=== PATIENT | male | born 1980 | race Caucasian/White ===

== ENCOUNTER 2022-04-09 22:50 | Emergency (ER) | payer SELFPAY ==
[2022-04-10] MEDS ORDERED: LORAZEPAM 1 MG TABLET ONE (00:06)
--- NOTE | 2022-04-10 01:13 | ER ---
Nurse's Notes [facility] Name: Jason Middleton Age: 41 yrs Sex: Male : 1980 Arrival Date: 04/09/2022 Time: 22:53 Bed 16 Private MD: Diagnosis: Generalized anxiety disorder;Chest pain, unspecified Presentation: 04/09 23:06 Chief complaint: Chief complaint: Patient states: "I just feel out of, I am scared like tw5 something is going to happen to me.". 23:08 Coronavirus screen: Vaccine status: Patient reports receiving the 1st dose of the Covid tw5 vaccine. unknown. Ebola Screen: Patient negative for fever greater than or equal to 101.5 degrees Fahrenheit, and additional compatible Ebola Virus Disease symptoms Patient denies exposure to infectious person. Patient denies travel to an Ebola-affected area in the 21 days before illness onset. Initial Sepsis Screen: Does the patient meet any 2 criteria? No. Patient's initial sepsis screen is negative. Does the patient have a suspected source of infection? No. Patient's initial sepsis screen is negative. Risk Assessment: Do you want to hurt yourself or someone else? Patient reports no desire to harm self or others. Onset of symptoms is unknown. 23:08 Method Of Arrival: Ambulatory tw5 23:08 Acuity: KATHY 4 tw5 Triage Assessment: 23:10 General: Appears slender, Behavior is anxious. Pain: Denies pain. tw5 Historical: - Allergies: 23:10 No Known Allergies; tw5 - Home Meds: 23:10 None [Active]; tw5 - PMHx: 23:10 None; tw5 - PSHx: 23:10 "ulcer surgery"; tw5 - Immunization history:: Flu vaccine is not up to date. - Social history:: Smoking status: Patient denies any tobacco usage or history of. Screenin:25 Abuse screen: Denies threats or abuse. Denies injuries from another. Nutritional kb3 screening: No deficits noted. Tuberculosis screening: No symptoms or risk factors identified. Fall Risk None identified. Assessment: 23:25 Reassessment: No changes from previously documented assessment. kb3 23:25 Pain: Denies pain. Neuro: No deficits noted. Level of Consciousness is awake, alert, kb3 Oriented to person, place, time, situation, Gait is steady, Speech is normal, Denies weakness headache. Cardiovascular: No deficits noted. Denies chest pain. Respiratory: Denies cough, shortness of breath. GI: Patient currently denies abdominal pain, nausea, vomiting. : Denies burning with urination, pain. 23:25 General: Pt states he is not homicidal or suicidal. Reports feeling "off" and "just not kb3 right.' States he has felt this way before a few times but has not been diagnosed with any mental illness and has never been prescribed medications for the symptoms. Pt is calm and cooperative. Discussed plan of care including awaiting MD for further orders. Pt is agreeable. 23:30 General: Pt reports drinking daily, usually wine. Reports he has had several glasses of kb3 wine today but no more or less than his normal.. 23:44 General: Pt refusing all labs, tests, procedures. Reports that he would prefer the kb3 doctor to just give him a pill to help him feel better. MD notified. 04/10 01:13 General: Pt called from room reporting that the feeling of being anxious "like kb3 something is wrong" is returning. This RN again offered to draw blood and send to lab for evaluation. Pt refused and requested valium to help him relax. MD notified of pt request.. 04:18 Reassessment: Patient and/or family updated on plan of care and expected duration. Pain sm5 level reassessed. Patient is alert, oriented x 3, equal unlabored respirations, skin warm/dry/pink. Psych: 04:18 [place] Suicide Severity Screening: In the past month, have you wished you were sm5 or wished you could go to sleep and not wake up? Patient responds "No." "In the past month, have you actually had any thoughts of killing yourself?" Patient responds "no." "In your lifetime, have you ever done anything, started to do anything, or prepared to do anything to end your life?" Patient responds "no.". Subjective: Delusions are denied, Hallucinations are denied. Objective: Patient is cooperative, Speech is normal. Vital Signs: 04/09 23:08 BP 163 / 89; Pulse 88; Resp 18; Temp 98.1; Pulse Ox 100% ; Weight 58.97 kg; Height 5 tw5 ft. 8 in. (172.72 cm); Pain 0/10; 04/10 00:00 BP 158 / 78; Pulse 90; Resp 16; Pulse Ox 99% ; Pain 0/10; kb3 04:18 BP 145 / 86; Pulse 89; Resp 18; Pulse Ox 99% on R/A; sm5 04/09 23:08 Body Mass Index 19.77 (58.97 kg, 172.72 cm) tw5 ED Course: 04/09 22:53 Patient arrived in ED. ja2 23:01 Jared Ferguson DO is Attending Physician. ms3 23:06 Tika Matamoros, RN is Primary Nurse. kb3 23:10 Triage completed. tw5 23:10 Arm band placed on Patient placed in an exam room. tw5 23:25 Patient has correct armband on for positive identification. Bed in low position. Call kb3 light in reach. 23:25 No provider procedures requiring assistance completed. kb3 04/10 01:12 Anam Link MD is Referral Physician. ms3 01:44 XRAY Chest (1 view) In Process Unspecified. EDMS 01:51 Inserted saline lock: 20 gauge in left forearm, using aseptic technique. Blood sm5 collected. 03:42 Osiel Lopez DO is Referral Physician. ms3 Administered Medications: 04/09 23:53 CANCELLED (Physician Discretion): Ativan (LORazepam) 0.5 mg IVP once ms3 23:58 Drug: Ativan (LORazepam) 1 mg Route: PO; kb3 Medication: 23:25 VIS not applicable for this client. kb3 Outcome: 04/10 01:12 Discharge ordered by . ms3 03:44 Discharge ordered by MD. ms3 04:49 Patient left the ED. sm5 Signatures: Dispatcher [employer] EDMS Jared Ferguson DO DO ms3 Ramya Joya ja2 Tess Vinson tw5 Maritza Sanderson RN RN sm5 Tika Matamoros, GUILHERME RN kb3 Corrections: (The following items were deleted from the chart) 04/09 23:10 23:06 Chief complaint: tw5 tw5
--- NOTE | 2022-04-10 01:13 | EDPHYS ---
Physician Documentation [facility] Name: Jason Middleton Age: 41 yrs Sex: Male : 1980 Arrival Date: 04/09/2022 Time: 22:53 Bed 16 Private MD: ED Physician Jared Ferguson HPI: 04/10 01:12 This 41 yrs old Male presents to ER via Ambulatory with complaints of Psych Problem. ms3 01:12 The patient presents to the emergency department with anxiety. Onset: The ms3 symptoms/episode began/occurred 8 hour(s) ago. Associated signs and symptoms: Pertinent positives; anxiety. Severity of symptoms: At their worst the symptoms were moderate. 41-year-old male with no past medical history presents for being "scared and nervous and feels like something is going to happen." Denies pain. Patient denies chest pain, nausea, vomiting, diarrhea.. Historical: - Allergies: 04/09 23:10 No Known Allergies; tw5 - Home Meds: 23:10 None [Active]; tw5 - PMHx: 23:10 None; tw5 - PSHx: 23:10 "ulcer surgery"; tw5 - Immunization history:: Flu vaccine is not up to date. - Social history:: Smoking status: Patient denies any tobacco usage or history of. ROS: 04/10 01:29 Constitutional: Negative for fever, and chills. Eyes: Negative for injury, pain, ms3 redness, and discharge, Neck: Negative for injury, pain, and swelling, Cardiovascular: Negative for chest pain, and palpitations. Abdomen/GI: Negative for abdominal pain, nausea, vomiting, diarrhea, and constipation, MS/Extremity: Negative for injury and deformity, Skin: Negative for injury, rash, and discoloration, Psych: Negative for depression, anxiety, suicide ideation, homicidal ideation, and hallucinations. Respiratory: Positive for shortness of breath. All other systems are negative. Exam: 01:29 Constitutional: This is a well developed, well nourished patient who is awake, alert, ms3 and in no acute distress. Head/Face: Normocephalic, atraumatic. Neck: Trachea midline, no cervical lymphadenopathy. Supple, full range of motion without nuchal rigidity, or vertebral point tenderness. No Meningismus. Chest/axilla: Normal chest wall appearance and motion. Nontender with no deformity. Cardiovascular: Regular rate and rhythm with a normal S1 and S2. No gallops, murmurs, or rubs. Normal PMI, no JVD. No pulse deficits. Respiratory: Lungs have equal breath sounds bilaterally, clear to auscultation and percussion. No rales, rhonchi or wheezes noted. No increased work of breathing, no retractions or nasal flaring. Abdomen/GI: Soft, non-tender, with normal bowel sounds. No distension or tympany. No guarding or rebound. No evidence of tenderness throughout. Skin: Warm, dry with normal turgor. Normal color with no rashes, no lesions, and no evidence of cellulitis. MS/ Extremity: Pulses equal, no cyanosis. Neurovascular intact. Full, normal range of motion. Psych: Awake, alert, with orientation to person, place and time. Behavior, mood, and affect are within normal limits. 01:48 ECG was reviewed by the Attending Physician. ms3 Vital Signs: 04/09 23:08 BP 163 / 89; Pulse 88; Resp 18; Temp 98.1; Pulse Ox 100% ; Weight 58.97 kg; Height 5 tw5 ft. 8 in. (172.72 cm); Pain 0/10; 04/10 00:00 BP 158 / 78; Pulse 90; Resp 16; Pulse Ox 99% ; Pain 0/10; kb3 04:18 BP 145 / 86; Pulse 89; Resp 18; Pulse Ox 99% on R/A; sm5 04/09 23:08 Body Mass Index 19.77 (58.97 kg, 172.72 cm) tw5 MDM: 04/09 23:17 Patient medically screened. ms3 23:44 ED course: Patient refusing labs or IV. Will give 1 mg PO ativan as patient will accept ms3 oral medications. 04/10 01:29 Differential diagnosis: drug withdrawal. anxiety vs mi. ms3 03:44 Data reviewed: vital signs, nurses notes, lab test result(s), EKG, radiologic studies, ms3 and as a result, I will discharge patient. Counseling: I had a detailed discussion with the patient and/or guardian regarding: the historical points, exam findings, and any diagnostic results supporting the discharge/admit diagnosis, lab results, radiology results, the need for outpatient follow up, to return to the emergency department if symptoms worsen or persist or if there are any questions or concerns that arise at home. Special discussion: Based on the patient's history, exam, and Dx evaluation, there is no indication for emergent intervention or inpatient Tx. It is understood by the patient/guardian that if the Sx's persist or worsen they need to return immediately for re-evaluation. 04/09 23:26 Order name: CBC with Diff; Complete Time: 02:19 3 04/09 23:26 Order name: BMP; Complete Time: 02:19 3 04/10 01:28 Order name: Troponin HS; Complete Time: 02:19 3 04/10 01:28 Order name: XRAY Chest (1 view) 3 04/10 01:28 Order name: EKG; Complete Time: 01:30 04/10 01:28 Order name: Cardiac monitoring; Complete Time: :51 04/10 01:28 Order name: EKG - Nurse/Tech; Complete Time: 04/10 01:28 Order name: IV Saline Lock; Complete Time: :51 3 04/10 01:28 Order name: Labs collected and sent; Complete Time: :51 04/10 01:28 Order name: O2 Per Protocol; Complete Time: 04/10 01:28 Order name: O2 Sat Monitoring; Complete Time: :51 ms3 EC:48 Rate is 97 beats/min. Rhythm is regular. QRS [place] is Normal. OR interval is normal. ms3 Clinical impression: Normal ECG. Interpreted by me. Reviewed by me. Administered Medications: 04/09 23:53 CANCELLED (Physician Discretion): Ativan (LORazepam) 0.5 mg IVP once ms3 23:58 Drug: Ativan (LORazepam) 1 mg Route: PO; kb3 Disposition Summary: 04/10/22 03:44 Discharge Ordered Location: Home(04/10/22 03:44) ms3 Condition: Stable(04/10/22 03:44) ms3 Diagnosis - Generalized anxiety disorder(04/10/22 03:44) ms3 - Chest pain, unspecified ms3 Followup: ms3 - With: Osiel Lopez, - When: 2 - 3 days - Reason: Recheck today's complaints Discharge Instructions: - Discharge Summary Sheet ms3 - Nonspecific Chest Pain, Adult ms3 - Generalized Anxiety Disorder, Adult ms3 Forms: - Medication Reconciliation Form ms3 - Thank You Letter ms3 - Antibiotic Education ms3 - Prescription Opioid Use ms3 Signatures: Dispatcher [employer] EDMS Jared Ferguson DO DO ms3 KarelTess tw5 Tika Matamoros, RN RN kb3 Corrections: (The following items were deleted from the chart) 23:53 23:26 Ativan (LORazepam) 0.5 mg IVP once ordered. ms3 ms3 04/10 01:42 01:12 Home ms3 ms3 01:42 01:12 Stable ms3 ms3 01:42 01:12 Generalized anxiety disorder ms3 ms3
[2022-04-10 01:57] LABS: Absolute Lymphocytes (CBC) 1.6 K/uL (0.7-4.9); Hematocrit 43.4 % (39.6-49.0); Lymphocytes % 17.4 % (15.3-44.8); MCV 90.5 fL (80-100); MPV 7.3 fL (7.6-11.3)
[2022-04-10 02:09] LABS: Potassium 3.9 mmol/L (3.5-5.1)
[2022-04-10 05:07] VITALS: TEMP 98.1
[2022-04-10 05:10] VITALS: O2SAT 99
[2022-04-10 05:17] VITALS: BP 145/86
--- NOTE | 2022-04-10 22:14 | RAD REPORT ---
EXAM DESCRIPTION: RAD - Chest Single View - 04/10/2022 1:42 am CLINICAL HISTORY: The patient is 41 years old and is Male; CHEST PAIN TECHNIQUE: Frontal view of the chest. COMPARISON: No relevant prior studies available. FINDINGS: Lungs: Unremarkable. No consolidation. Pleural space: Unremarkable. No pneumothorax. Heart: Unremarkable. Mediastinum: Unremarkable. Bones/joints: Unremarkable. IMPRESSION: No acute findings in the chest. Electronically signed by: Bruce Walker MD 04/10/2022 2:01 AM CDT Due to temporary technical issues with the PACS/Fluency reporting system, reports are being signed by the in house radiologists without review as a courtesy to insure prompt reporting. The interpreting radiologist is fully responsible for the content of the report.
--- NOTE | 2022-04-13 08:25 | EKG ---
Test Date: 2022-04-10 Test Time: 01:48:08 Safe Technician: PAT MEASUREMENT RESULTS: Intervals: Rate: 97 DC: 118 QRSD: 92 QT: 354 QTc: 449 [place]: P: 81 DC: 118 QRS: 53 T: 66 INTERPRETIVE STATEMENTS: Normal sinus rhythm Normal ECG Compared to ECG 12/23/2013 04:41:40 Sinus arrhythmia no longer present Electronically Signed On 04-13-22 08:12:47 CDT by Stephon Gallagher
== END 2022-04-10 04:49 | disposition home or self-care (01) ==
LOC: ER 22:50
DX: F41.1 Generalized anxiety disorder (principal); R07.9 Chest pain, unspecified
CPT/HCPCS: 36415; 71045; 80048; 84484; 85025; 93005; 99284

== ENCOUNTER 2022-07-09 09:32 | Emergency (ER) | payer SELFPAY ==
[2022-07-09] MEDS ORDERED: IBUPROFEN 400 MG TAB ONE (10:05)
[2022-07-09] MEDS ORDERED: CYCLOBENZAPRINE 10 MG TAB ONE (10:05)
--- NOTE | 2022-07-09 10:54 | RAD REPORT ---
EXAM DESCRIPTION: RAD - Lumbar Spine 3 Views - 07/09/2022 10:47 am CLINICAL HISTORY: PAIN Radiculopathy COMPARISON: No comparisons FINDINGS: Vertebral body heights appear maintained. No compression fracture noted. Disc spaces are m aintained. No spondylolysis or spondylolisthesis. There appears to be a fracture of the left posterior twelfth rib. The left transverse process of L1, L2, L3, L4 also appeared mildly fractured. IMPRESSION: Left twelfth rib fracture posterior aspect. Fracture left transverse process of L1-4.
[2022-07-09] MEDS ORDERED: HYDROCODONE/APAP 5/325 MG TAB ONE (11:01)
--- NOTE | 2022-07-09 11:07 | ER ---
Nurse's Notes [facility] Name: Jason Middleton Age: 41 yrs Sex: Male : 1980 Arrival Date: 07/09/2022 Time: 09:33 Bed 6 Private MD: Diagnosis: Fracture of one rib;Fracture of lumbar vertebra Presentation: 07/09 09:34 Chief complaint: EMS states: "pt reported falling last night and hitting his mid/lower jd3 back on a wooden armrest on a chair. this morning he is reporting that pain has gotten worse and hurts to change positions. denies LOC or any numbness or weakness.". Coronavirus screen: At this time, the client does not indicate any symptoms associated with coronavirus-19. Ebola Screen: No symptoms or risks identified at this time. Initial Sepsis Screen: Does the patient meet any 2 criteria? No. Patient's initial sepsis screen is negative. Does the patient have a suspected source of infection? No. Patient's initial sepsis screen is negative. Risk Assessment: Do you want to hurt yourself or someone else? Patient reports no desire to harm self or others. Onset of symptoms was July 08, 2022. 09:34 Method Of Arrival: EMS: [facility] jd3 09:34 Acuity: KATHY 4 jd3 Historical: - Allergies: 09:35 No Known Allergies; jd3 - Home Meds: 09:35 None [Active]; jd3 - PMHx: 09:35 None; jd3 - PSHx: 09:35 "ulcer surgery"; jd3 - Immunization history:: Adult Immunizations up to date, Client reports receiving the 2nd dose of the Covid vaccine, Flu vaccine is up to date. - Social history:: Smoking status: Patient/guardian denies using tobacco, but has a distant history of tobacco abuse. Screenin:39 Abuse screen: Denies threats or abuse. Nutritional screening: No deficits noted. jd3 Tuberculosis screening: No symptoms or risk factors identified. Fall Risk Ambulatory Aid- None/Bed Rest/Nurse Assist (0 pts). Gait- Normal/Bed Rest/Wheelchair (0 pts) Mental Status- Oriented to own ability (0 pts). Total Salguero Fall Scale indicates No Risk (0-24 pts). Assessment: 09:37 General: Appears in no apparent distress. uncomfortable, Behavior is calm, cooperative, jd3 appropriate for age. Pain: Complains of pain in low back area and left low back Pain radiates to left leg Quality of pain is described as burning, sharp, shooting, tender. Neuro: Tariq Agitation-Sedation Scale (RASS): 0 - Alert and Calm Level of Consciousness is awake, alert, obeys commands, Oriented to person, place, time, situation, Denies weakness numbness. Cardiovascular: Denies diaphoresis, Heart tones S1 S2 present Capillary refill < 3 seconds Patient's skin is warm and dry. Respiratory: Reports cough that is pain with respiration Airway is patent Respiratory effort is even, unlabored, Respiratory pattern is regular, symmetrical, Breath sounds with wheezes bilaterally. GI: No signs and/or symptoms were reported involving the gastrointestinal system. : No signs and/or symptoms were reported regarding the genitourinary system. EENT: No signs and/or symptoms were reported regarding the EENT system. Derm: Skin is intact, Skin is dry, Skin is normal, Skin temperature is warm. Musculoskeletal: Circulation, motion, and sensation intact. Range of motion: intact in all extremities. 11:04 Reassessment: Patient appears in no apparent distress at this time. Patient and/or jd3 family updated on plan of care and expected duration. Pain level reassessed. Patient is alert, oriented x 3, equal unlabored respirations, skin warm/dry/pink. provider at bedside discussing results. Vital Signs: 09:35 BP 108 / 75; Pulse 96; Resp 16 S; Temp 98.7(O); Pulse Ox 98% on R/A; Weight 58.97 kg jd3 (R); Height 5 ft. 7 in. (170.18 cm) (R); Pain 10/10; 11:05 BP 117 / 75; Pulse 95; Resp 16; Pulse Ox 100% on R/A; jd3 09:35 Body Mass Index 20.36 (58.97 kg, 170.18 cm) jd3 ED Course: 09:33 Patient arrived in ED. jd3 09:33 Mal Hennessy RN is Primary Nurse. jd3 09:35 Triage completed. jd3 09:35 [facility] jl9 09:35 Mark Quiles MD is Attending Physician. jl9 09:35 Arm band placed on. jd3 09:39 Patient has correct armband on for positive identification. Bed in low position. Call jd3 light in reach. Side rails up X2. Pulse ox on. NIBP on. 10:48 XRAY Lumbar Spine (3 Views) In Process Unspecified. EDMS 11:09 Gonzales Salgado MD is Referral Physician. jl9 11:28 No provider procedures requiring assistance completed. Patient did not have IV access jd3 during this emergency room visit. Administered Medications: 10:08 Drug: Cyclobenzaprine 10 mg Route: PO; jd3 11:00 Follow up: Response: No adverse reaction jd3 10:08 Drug: Ibuprofen 800 mg Route: PO; jd3 11:00 Follow up: Response: No adverse reaction jd3 11:04 Drug: HYDROcodone-acetaminophen 5 mg-325 mg 1 tabs Route: PO; jd3 11:29 Follow up: Response: No adverse reaction; Medication administered at discharge.; RASS: jd3 Alert and Calm (0) Medication: 09:39 VIS not applicable for this client. jd3 Outcome: 11:07 Discharge ordered by . jl9 11:28 Discharged to home ambulatory. jd3 11:28 Condition: stable 11:28 Discharge instructions given to patient, Instructed on discharge instructions, follow up and referral plans. medication usage, Demonstrated understanding of instructions, follow-up care, medications, Prescriptions given X 1. 11:29 Patient left the ED. jd3 Signatures: Dispatcher [employer] Mal Cintron RN RN Jt Colon jl9
--- NOTE | 2022-07-09 11:07 | EDPHYS ---
Physician Documentation [facility] Name: Jason Middleton Age: 41 yrs Sex: Male : 1980 Arrival Date: 07/09/2022 Time: 09:33 Bed 6 Private MD: ED Physician Mark Quiles HPI: 07/09 10:06 This 41 yrs old Male presents to ER via EMS with complaints of lower back jl9 pain s/p fall onto chair yesterday. . 10:06 Details of fall: The patient fell from a height, standing. Onset: The symptoms/episode jl9 began/occurred yesterday. Associated injuries: The patient sustained injury to the low back, pain. Severity of symptoms: in the emergency department the symptoms a " 3" out of "10". Historical: - Allergies: 09:35 No Known Allergies; jd3 - Home Meds: 09:35 None [Active]; jd3 - PMHx: 09:35 None; jd3 - PSHx: 09:35 "ulcer surgery"; jd3 - Immunization history:: Adult Immunizations up to date, Client reports receiving the 2nd dose of the Covid vaccine, Flu vaccine is up to date. - Social history:: Smoking status: Patient/guardian denies using tobacco, but has a distant history of tobacco abuse. ROS: 10:07 Constitutional: Negative for fever, chills, and weight loss, Eyes: Negative for injury, jl9 pain, redness, and discharge, ENT: Negative for injury, pain, and discharge, Neck: Negative for injury, pain, and swelling, Cardiovascular: Negative for chest pain, palpitations, and edema, Respiratory: Negative for shortness of breath, cough, wheezing, and pleuritic chest pain, Abdomen/GI: Negative for abdominal pain, nausea, vomiting, diarrhea, and constipation. 10:07 : Negative for injury, bleeding, discharge, and swelling, MS/Extremity: Negative for injury and deformity, Skin: Negative for injury, rash, and discoloration, Neuro: Negative for headache, weakness, numbness, tingling, and seizure, Psych: Negative for depression, anxiety, suicide ideation, homicidal ideation, and hallucinations, Allergy/Immunology: Negative for hives, rash, and allergies, Endocrine: Negative for neck swelling, polydipsia, polyuria, polyphagia, and marked weight changes, Hematologic/Lymphatic: Negative for swollen nodes, abnormal bleeding, and unusual bruising. 10:07 Back: Positive for pain with movement. Exam: 10:07 Constitutional: This is a well developed, well nourished patient who is awake, alert, jl9 and in no acute distress. Head/Face: Normocephalic, atraumatic. Eyes: Pupils equal round and reactive to light, extra-ocular motions intact. Lids and lashes normal. Conjunctiva and sclera are non-icteric and not injected. Cornea within normal limits. Periorbital areas with no swelling, redness, or edema. ENT: Mucous membranes moist. Neck: Trachea midline, no thyromegaly or masses palpated, and no cervical lymphadenopathy. Supple, full range of motion without nuchal rigidity, or vertebral point tenderness. No Meningismus. Chest/axilla: Normal chest wall appearance and motion. Nontender with no deformity. No lesions are appreciated. Cardiovascular: Regular rate and rhythm with a normal S1 and S2. No gallops, murmurs, or rubs. Normal PMI, no JVD. No pulse deficits. Respiratory: Lungs have equal breath sounds bilaterally, clear to auscultation and percussion. No rales, rhonchi or wheezes noted. No increased work of breathing, no retractions or nasal flaring. Abdomen/GI: Soft, non-tender, with normal bowel sounds. No distension or tympany. No guarding or rebound. No evidence of tenderness throughout. 10:07 Skin: Warm, dry with normal turgor. Normal color with no rashes, no lesions, and no evidence of cellulitis. MS/ Extremity: Pulses equal, no cyanosis. Neurovascular intact. Full, normal range of motion. Neuro: Awake and alert, GCS 15, oriented to person, place, time, and situation. Cranial nerves II-XII grossly intact. Motor strength 5/5 in all extremities. Sensory grossly intact. Cerebellar exam normal. Normal gait. Psych: Awake, alert, with orientation to person, place and time. Behavior, mood, and affect are within normal limits. 10:07 Back: pain, that is mild, ROM is painful, normal spinal alignment noted, CVA tenderness, is absent, vertebral tenderness, is not appreciated. Vital Signs: 09:35 BP 108 / 75; Pulse 96; Resp 16 S; Temp 98.7(O); Pulse Ox 98% on R/A; Weight 58.97 kg jd3 (R); Height 5 ft. 7 in. (170.18 cm) (R); Pain 10/10; 11:05 BP 117 / 75; Pulse 95; Resp 16; Pulse Ox 100% on R/A; jd3 09:35 Body Mass Index 20.36 (58.97 kg, 170.18 cm) jd3 MDM: 09:35 Patient medically screened. jl9 10:08 Differential diagnosis: abrasion, contusion, fracture. Data reviewed: vital signs, jl9 nurses notes. 11:05 Counseling: I had a detailed discussion with the patient and/or guardian regarding: the jl9 historical points, exam findings, and any diagnostic results supporting the discharge/admit diagnosis, lab results, radiology results, the need for outpatient follow up, to return to the emergency department if symptoms worsen or persist or if there are any questions or concerns that arise at home. Response to treatment: the patient's symptoms have markedly improved after treatment. 07/09 09:41 Order name: XRAY Lumbar Spine (3 Views); Complete Time: 10:59 jl9 Administered Medications: 10:08 Drug: Cyclobenzaprine 10 mg Route: PO; jd3 11:00 Follow up: Response: No adverse reaction jd3 10:08 Drug: Ibuprofen 800 mg Route: PO; jd3 11:00 Follow up: Response: No adverse reaction jd3 11:04 Drug: HYDROcodone-acetaminophen 5 mg-325 mg 1 tabs Route: PO; jd3 11:29 Follow up: Response: No adverse reaction; Medication administered at discharge.; RASS: jd3 Alert and Calm (0) Disposition Summary: 07/09/22 11:07 Discharge Ordered Location: Home jl9 Condition: Stable jl9 Diagnosis - Fracture of one rib jl9 - Fracture of lumbar vertebra jl9 Followup: jl9 - With: Private Physician - When: 1 - 2 days - Reason: Recheck today's complaints, Continuance of care, Re-evaluation by your physician Followup: jl9 - With: Gonzales Salgado MD - When: 1 - 2 days - Reason: Recheck today's complaints, Continuance of care, Re-evaluation by your physician Discharge Instructions: - Discharge Summary Sheet jl9 - Lumbar Spine Fracture jl9 - Rib Fracture, [id number] jl9 Forms: - Medication Reconciliation Form jl9 - Thank You Letter jl9 - Antibiotic Education jl9 - Prescription Opioid Use jl9 Prescriptions: - Tylenol-Codeine #3 300 mg-30 mg Oral - take 1 tablet by ORAL route every 6 hours; 20 tablet; Refills: 0, Product jl9 Selection Permitted Signatures: Dispatcher [employer] Mal Cintron RN RN Jt Colon jl9
[2022-07-09 11:35] VITALS: TEMP 98.7
[2022-07-09 11:36] VITALS: BP 117/75; O2SAT 100
== END 2022-07-09 11:29 | disposition home or self-care (01) ==
LOC: ER 09:32
DX: S22.32XA Fracture of one rib, left side, initial encounter for closed fracture (principal); S32.009A Unspecified fracture of unspecified lumbar vertebra, initial encounter for closed fracture
CPT/HCPCS: 72100; 99284

== ENCOUNTER 2023-01-15 00:30 | Emergency (ER) | payer SELFPAY ==
[2023-01-15] MEDS ORDERED: LORAZEPAM 1 MG TABLET ONE (01:25)
[2023-01-15] MEDS ORDERED: NA CHLORIDE 0.9% 1,000 ML ONE (01:49)
[2023-01-15 01:59] LABS: Hematocrit 39.9 % (39.6-49.0); Lymphocytes % 18.2 % (15.3-44.8); MPV 7.4 fL (7.6-11.3); RBC Red Blood Cell Count 4.48 M/uL (4.33-5.43)
[2023-01-15 02:05] LABS: Protime INR 1.01
[2023-01-15 02:40] LABS: ALT/SGPT 27 U/L (16-61); AST/SGOT 36 U/L (15-37); Albumin 3.6 g/dL (3.4-5.0); Alkaline Phosphatase 94 U/L (45-117); BUN Blood Urea Nitrogen 14 mg/dL (7-18); Bicarbonate 27 mEq/L (21-32); Bilirubin Direct 0.5 mg/dL (0-0.2); Bilirubin Indirect, Calculated 1.2 mg/dL (0.2-0.8); Bilirubin Total 1.7 mg/dL (0.2-1.0); Glomerular Filtration Rate 117 ml/min (=/>90); Glucose Level 93 mg/dL (74-106); Potassium 2.8 mEq/L (3.5-5.1); Protein, Total 7.6 g/dL (6.4-8.2); Sodium Level 131 mEq/L (136-145)
[2023-01-15] MEDS ORDERED: POTASSIUM 25 MEQ EFFERV TAB ONE (03:05)
[2023-01-15 04:22] LABS: Barbiturates NEGATIVE (NEGATIVE); Benzodiazepines NEGATIVE (NEGATIVE); Cocaine NEGATIVE (NEGATIVE); METHAMPHETAM POSITIVE (NEGATIVE); Methadone NEGATIVE (NEGATIVE); Opiates NEGATIVE (NEGATIVE); Phencyclidine NEGATIVE (NEGATIVE); THC Cannibis NEGATIVE (NEGATIVE)
--- NOTE | 2023-01-15 04:37 | ER ---
Nurse's Notes [facility] Name: Jason Middleton Age: 42 yrs Sex: Male : 1980 Arrival Date: 01/15/2023 Time: 00:30 Bed 10 Private MD: Diagnosis: Other specified anxiety disorders Presentation: 01/15 01:02 Chief complaint: Patient states: I am not sure what is going on in my head. I am kd3 scared. I feel anxious. I think I might be hearing voices. I also have a hernia and a problem with my feet. I want something to help me calm down. Coronavirus screen: Vaccine status: Patient reports being unvaccinated. Ebola Screen: No symptoms or risks identified at this time. Initial Sepsis Screen: Does the patient meet any 2 criteria? No. Patient's initial sepsis screen is negative. Does the patient have a suspected source of infection? No. Patient's initial sepsis screen is negative. Risk Assessment: Do you want to hurt yourself or someone else? Patient reports no desire to harm self or others. Onset of symptoms was January 15, 2023. 01:02 Method Of Arrival: Ambulatory kd3 01:02 Acuity: KATHY 3 kd3 Triage Assessment: 01:05 General: Appears uncomfortable, Behavior is anxious. Pain: Denies pain. kd3 Historical: - PSHx: 01:05 "ulcer surgery"; kd3 - Immunization history:: Adult Immunizations unknown. - Social history:: Smoking status: Patient reports the use of cigarette tobacco products. Screenin:05 [facility] ED Fall Risk Assessment (Adult) History of falling in the last 3 months, kd3 including since admission No falls in past 3 months (0 pts) Confusion or Disorientation No (0 pts) Intoxicated or Sedated No (0 pts) Impaired Gait No (0 pts) Mobility Assist Device Used No (0 pt) Altered Elimination No (0 pt) Score/Fall Risk Level 0 - 2 = Low Risk Maintained a safe environment. Abuse screen: Denies threats or abuse. Denies injuries from another. Nutritional screening: No deficits noted. Tuberculosis screening: No symptoms or risk factors identified. Assessment: 02:54 General: General: Appears in no apparent distress. comfortable, Behavior is calm, kd3 cooperative. 03:05 Reassessment: pt seen resting comfortably in bed . Neuro: Level of Consciousness is kd3 awake, alert, obeys commands, Oriented to person, place, time, situation. Cardiovascular: Patient's skin is warm and dry. Respiratory: Airway is patent Trachea midline Respiratory effort is even, unlabored. 04:36 Reassessment: Patient and/or family updated on plan of care and expected duration. Pain kd3 level reassessed. Patient is alert, oriented x 3, equal unlabored respirations, skin warm/dry/pink. Patient states feeling better. Patient states symptoms have improved. Vital Signs: 01:02 BP 158 / 92; Pulse 89; Resp 19; Temp 98.5(O); Pulse Ox 98% on R/A; Weight 60.33 kg; kd3 03:06 BP 134 / 74; Pulse 82; Resp 18; Pulse Ox 99% on R/A; kd3 04:36 BP 142 / 75; Pulse 81; Resp 19; Pulse Ox 99% on R/A; kd3 ED Course: 00:31 Patient arrived in ED. jj6 00:49 Lenny Cao MD is Attending Physician. bs3 01:02 Nicolasa Vazquez, GUILHERME is Primary Nurse. kd3 01:05 Triage completed. kd3 01:05 Arm band placed on right wrist. kd3 01:05 Patient has correct armband on for positive identification. Bed in low position. Call kd3 light in reach. 01:45 Salicylate Sent. kd3 01:45 Ptt, Activated Sent. kd3 01:45 PT-INR Sent. kd3 01:45 Hepatic Function Sent. kd3 01:45 ETOH Level Sent. kd3 01:45 CBC with Diff Sent. kd3 01:45 Basic Metabolic Panel Sent. kd3 01:45 Acetaminophen Sent. kd3 03:05 No provider procedures requiring assistance completed. kd3 03:35 Urine Drug Screen Sent. kd3 04:36 IV discontinued, intact, bleeding controlled, No redness/swelling at site. Pressure kd3 dressing applied. Administered Medications: 01:22 Drug: LORazepam PO 1 mg Route: PO; kd3 03:35 Follow up: Response: No adverse reaction; Anxiety decreased kd3 01:45 Drug: NS 0.9% IV 1000 ml Route: IV; Rate: 1000 ml; Site: right antecubital; kd3 03:35 Follow up: IV Status: Completed infusion kd3 03:05 Drug: Potassium PO Effervescent Tablet 50 mEq Route: PO; kd3 03:35 Follow up: Response: No adverse reaction kd3 Medication: 03:05 VIS not applicable for this client. kd3 Outcome: 04:36 Discharged to home ambulatory. kd3 04:36 Condition: stable 04:36 Discharge instructions given to patient, Instructed on discharge instructions, follow up and referral plans. Demonstrated understanding of instructions, follow-up care. 04:36 Discharge ordered by . bs3 04:39 Patient left the ED. kd3 Signatures: Nae Leung Kyli, RN RN kd3 Lenny Cao MD MD bs3 Corrections: (The following items were deleted from the chart) 03:06 02:54 General: kd3 kd3
--- NOTE | 2023-01-15 04:37 | EDPHYS ---
Physician Documentation [facility] Name: Jason Middleton Age: 42 yrs Sex: Male : 1980 Arrival Date: 01/15/2023 Time: 00:30 Bed 10 Private MD: ED Physician Lenny Cao HPI: 01/15 01:37 This 42 yrs old Male presents to ER via Ambulatory with complaints of Anxiety.bs3 01:37 42-year-old male history of anxiety history of chronic right inguinal hernia presents bs3 with multiple complaints he notes that he has only urinated once today and he feels leg discomfort he also notes auditory hallucinations but is not sure what they are saying he feels anxious and paranoid he does note that he eats something from a random person but he is not sure what was in it today he states that he is thirsty but does not want water because he is afraid it is poisoned denies chest pain shortness of breath denies wanting to hurt himself or other. Patient reports a history of polysubstance use and is currently undomiciled. Historical: - PSHx: 01:05 "ulcer surgery"; kd3 - Immunization history:: Adult Immunizations unknown. - Social history:: Smoking status: Patient reports the use of cigarette tobacco products. ROS: 01:37 Constitutional: Negative for fever, chills bs3 01:37 All other systems are negative. Exam: 01:37 Constitutional: Appears unkempt Head/Face: Normocephalic, atraumatic. Eyes: Pupils bs3 equal round and reactive to light, extra-ocular motions intact. Lids and lashes normal. ENT: mmm, no posterior phyarngeal erythema Neck: Trachea midline, no thyromegaly, no neck stiffness Chest/axilla: Normal chest wall appearance and motion. Nontender with no deformity. No lesions are appreciated. Cardiovascular: Regular rate and rhythm with a normal S1 and S2. symmetric pulses in upper extremities Respiratory: Lungs have equal breath sounds bilaterally, clear to auscultation, no respiratory distress Abdomen/GI: Soft, non-tender, no rebound or guarding Male : Normal genitalia with no discharge or lesions. He has a right inguinal hernia easily reducible nontender MS/ Extremity: Pulses equal, no cyanosis. Neurovascular intact. Full, normal range of motion. Neuro: Awake and alert, GCS 15, oriented to person, place, time, and situation. Cranial nerves II-XII grossly intact. Motor strength 5/5 in all extremities. Sensory grossly intact. Psych: Patient slightly paranoid, he does not appear to be responding to internal stimuli he does have slight tangential thought Vital Signs: 01:02 BP 158 / 92; Pulse 89; Resp 19; Temp 98.5(O); Pulse Ox 98% on R/A; Weight 60.33 kg; kd3 03:06 BP 134 / 74; Pulse 82; Resp 18; Pulse Ox 99% on R/A; kd3 04:36 BP 142 / 75; Pulse 81; Resp 19; Pulse Ox 99% on R/A; kd3 MDM: 00:49 Patient medically screened. bs3 01:37 Differential diagnosis: drug withdrawal. acute psychotic break, depression, psychosis bs3 secondary to non-compliance, Possible substance abuse. Data reviewed: vital signs, nurses notes. ED course: Patient requesting something for anxiety will give anxiolytic and reassess he is currently not a danger to himself or others and does not want to be hospitalized. 04:36 ED course: Patient with slight hyponatremia and hypokalemia he was given p.o. bs3 medication and feeling much better we discussed options for inpatient stay versus discharge patient wanted to be discharged after sleeping he was feeling much better advised return precautions. 01/15 01:10 Order name: Acetaminophen; Complete Time: 02:54 3 01/15 01:10 Order name: Basic Metabolic Panel; Complete Time: 02:54 3 01/15 01:10 Order name: CBC with Diff; Complete Time: 02:40 3 01/15 01:10 Order name: ETOH Level; Complete Time: 02:40 [facility] 01/15 01:10 Order name: Hepatic Function; Complete Time: 02:54 [facility] 01/15 01:10 Order name: PT-INR; Complete Time: 02:40 3 01/15 01:10 Order name: Ptt, Activated; Complete Time: 02:40 3 01/15 01:10 Order name: Salicylate; Complete Time: 02:40 3 01/15 01:10 Order name: Urine Drug Screen [facility] 01/15 01:10 Order name: EKG; Complete Time: 01:11 bs3 01/15 01:10 Order name: IV Saline Lock; Complete Time: :45 bs3 01/15 01:10 Order name: Labs collected and sent; Complete Time: 45 bs3 01/15 01:10 Order name: Suicide Screening ([place]); Complete Time: 02:27 bs3 Administered Medications: 01:22 Drug: LORazepam PO 1 mg Route: PO; kd3 03:35 Follow up: Response: No adverse reaction; Anxiety decreased kd3 01:45 Drug: NS 0.9% IV 1000 ml Route: IV; Rate: 1000 ml; Site: right antecubital; kd3 03:35 Follow up: IV Status: Completed infusion kd3 03:05 Drug: Potassium PO Effervescent Tablet 50 mEq Route: PO; kd3 03:35 Follow up: Response: No adverse reaction kd3 Disposition Summary: 01/15/23 04:36 Discharge Ordered Location: Home bs3 Problem: an acute exacerbation bs3 Symptoms: have improved bs3 Condition: Stable bs3 Diagnosis - Other specified anxiety disorders bs3 Followup: bs3 - With: Private Physician - When: 2 - 3 days - Reason: Re-evaluation by your physician Discharge Instructions: - Discharge Summary Sheet bs3 - Supporting Someone With Anxiety bs3 - Managing Anxiety, Adult bs3 Forms: - Medication Reconciliation Form bs3 - Thank You Letter bs3 - Antibiotic Education bs3 - Prescription Opioid Use bs3 Signatures: Dispatcher [employer] Nicolasa Wood RN RN kd3 Lenny Cao MD MD bs3 Corrections: (The following items were deleted from the chart) 01:38 01:37 42-year-old male history of anxiety history of chronic right inguinal hernia bs3 presents with multiple complaints he notes that he has only urinated once today and he feels leg discomfort he also notes auditory hallucinations but is not sure what they are saying he feels anxious and paranoid he does note that he eats something from a random person but he is not sure what was in it today he states that he is thirsty but does not want water because he is afraid it is poisoned denies chest pain shortness of breath denies wanting to hurt himself or other. bs3 02:00 01:10 EKG - Nurse/Tech ordered. bs3 kd3
[2023-01-15 04:56] VITALS: TEMP 98.5
[2023-01-15 04:58] VITALS: O2SAT 99
[2023-01-15 05:00] VITALS: BP 142/75
== END 2023-01-15 04:39 | disposition home or self-care (01) ==
LOC: ER 00:30
DX: F41.8 Other specified anxiety disorders (principal)
CPT/HCPCS: 36415; 80048; 80076; 80307; 85025; 85610; 85730; G0480; J7030